=== PATIENT | female | born 1990 | race Caucasian/White ===

== ENCOUNTER → 2023-06-15 15:35 | Outpatient (CLI) | payer BC, SELFPAY ==
--- NOTE | ~2023-06-15 | US_ITS ---
Pelvic ultrasound. Clinical History: First trimester , uncertain dates Technique: Realtime transabdominal scanning of the pelvis was performed. Color flow Doppler and Doppl er spectral analysis were performed. Findings: The uterus is anteverted, and contains an intrauterine gestation. [place]-rump length of 3.7 cm corresponds to an estimated gestational age of 10 weeks 4 days. heart rate is 166 bpm. Anter ior intramural fibroid measures 3.4 cm in diameter. The right ovary measures 3.4 x 1.5 x 1.9 cm. No significant right ovarian or adnexal mass is seen. The left ovary measures 2.9 x 2.4 x 3.0 cm. No significant left ovarian or adnexal mass is seen. There is no evidence of free fluid in the cul de sac. Impression: Live intrauterine gestation with estimated gestational age of 10 weeks 4 days. heart rate is 16 6 bpm. Sonographic JOANNA is 01/07/2024. 3.4 cm fibroid, as above. Reviewed, dictated and finalized at location . T ROCK LAYER Impression: Live intrauterine gestation with estimated gestational age of 10 weeks 4 days. heart rate is 166 bpm. Sonographic JOANNA is 01/07/2024. 3.4 cm fibroid, as above.
== END ==
PROVIDERS: PCP Obstetrics & Gynecology Gynecology; Visit Provider Advanced Practice Midwife
DX: Z36.87 Encounter for antenatal screening for uncertain dates (principal); D25.9 Leiomyoma of uterus, unspecified
CPT/HCPCS: 76801

== ENCOUNTER → 2023-08-08 15:32 | Outpatient (CLI) | payer BC, SELFPAY ==
--- NOTE | ~2023-08-08 | US_ITS ---
EXAMINATION: US OB /maternal detail DATE: 08/08/2023 16:16 INDICATION: anatomic survey. TECHNIQUE: Real-time ultrasound of the pelvis was performed. COMPARISON: Ultrasound 06/15/2023 FINDINGS: There is a single living fetus in breech presentation. The placenta is anterior, 6.3 cm from the cer vix. heart rate is 143 beats per minute (bpm). The amniotic fluid volume is subjectively normal . The following biometric data were obtained: Biparietal diameter (BPD): 4.2 cm; head circumference (HC): 15.4 cm; abdominal circumference (AC): 13 .3 cm; femur length (FL): 2.6 cm. These measurements are concordant. Estimated weight is 235 g +/- 35 g, which correlates with the 49th percentile when 01/07/24 is u sed as estimated date of delivery. As single measurements, these parameters are each equal to the following estimated gestational ages: BPD: 18 weeks 5 days. HC: 18 weeks 3 days. AC: 18 weeks 6 days. FL: 17 weeks 6 days. estimated gestational age based solely on measurements from this exam is 18 weeks 3 days +/- 1 weeks 2 days. The cerebral ventricles, cerebellum, cisterna magna, nuchal fold, lip, and visualized portions of the spine are normal. The heart is normal. The diaphragm, stomach, and kidneys are normal. The bladder i s normal. There are two umbilical arteries to yield a 3-vessel cord. The cord insertion is normal. IMPRESSION: 1. Single living fetus in breech presentation. 2. Estimated weight is 235 g +/- 35 g, which correlates with the 49th percentile when 01/07/24 is used as estimated date of delivery. 3. Normal anatomic survey. Reviewed, dictated and finalized at location E. H HEATER IMPRESSION: 1. Single living fetus in breech presentation. 2. Estimated weight is 235 g +/- 35 g, which correlates with the 49th pe rcentile when 01/07/24 is used as estimated date of delivery. 3. Normal anatomic survey.
== END ==
PROVIDERS: PCP Advanced Practice Midwife; Visit Provider Advanced Practice Midwife
DX: Z36.9 Encounter for antenatal screening, unspecified (principal); Z3A.00 Weeks of gestation of pregnancy not specified
CPT/HCPCS: 76805

== ENCOUNTER → 2023-09-08 15:14 | Outpatient (CLI) | payer BC, SELFPAY ==
--- NOTE | ~2023-09-08 | US_ITS ---
EXAMINATION: US OB follow up DATE: 09/08/2023 15:39 INDICATION: Spotting during second trimester of TECHNIQUE: Real-time ultrasound of the pelvis was performed. The interpreting radiologist was not pre sent for the study. COMPARISON: None. FINDINGS: There is a single living fetus in breech presentation. The placenta is anterior and not low-lying. F etal heart rate is 151 beats per minute (bpm). The amniotic volume is subjectively normal. Normal cer vical length of 3.2 cm. The following biometric data were obtained: BPD: 5.5 cm -> 22 weeks 6 days Head circumference: 21.0 cm -> 23 weeks 1 days Abdominal circumference: 19.1 cm -> 23 weeks 6 days Femur length: 3.8 cm -> 22 weeks 1 days The biometric data are discordant with femur length to biparietal diameter ratio, femur length to abd ominal circumference ratio and femur length to head circumference ratio all greater than 2 standard d eviations below the mean. Head circumference to abdominal circumference ratio: 1.10 (normal range 1.05-1.21). Estimated weight: 561 g (+/-) 84 g or 1 lbs. 4 oz. (+/-) 3 oz. IMPRESSION: 1. Single living fetus in each presentation with heart rate of 151 bpm. 2. Estimated weight is 62nd percentile by Hadlock criteria when 01/07/2024 is used as the estima nitin date of delivery (JOANNA). Please correlate with clinical information or earlier ultrasounds for mos t accurate JOANNA. 3. Discordant biometric data with the ratio of the femur to the head circumference, abdominal circumf erence and biparietal diameter also slightly below the normal range suggesting possible rhizomelia. Reviewed, dictated and finalized at location A. LINE FIELD OPERATOR IMPRESSION: 1. Single living fetus in each presentation with heart rate of 151 bpm. 2. Estimated weight is 62nd percentile by Hadlock criteria when 01/07/2024 is used as the estimated date of delivery (JOANNA). Please correlate with clinica l information or earlier ultrasounds for most accurate JOANNA. 3. Discordant biometric data with the ratio of the femur to the head circumfere nce, abdominal circumference and biparietal diameter also slightly below the no rmal range suggesting possible rhizomelia.
== END ==
PROVIDERS: PCP Obstetrics & Gynecology Gynecology; Visit Provider Obstetrics & Gynecology Gynecology
DX: O26.852 Spotting complicating pregnancy, second trimester (principal); Z3A.00 Weeks of gestation of pregnancy not specified
CPT/HCPCS: 76816

== ENCOUNTER 2023-12-10 21:42 | Observation (INO) | payer BC, SELFPAY ==
[2023-12-10] VITALS (9 sets, daily range): BP systolic 111–138; BP diastolic 66–85; PULSE 95–126; TEMP 37.1; BMI 30.5
--- NOTE | 2023-12-10 21:42 | OBADM ---
This patient, Clara Ball, admitted to the OB room Labor/Delivery/Recovery 120 for observation. Patient/family oriented to hospital policies and general routines including ID bracelet, bed and alarms, visiting hours, pain management, procedures, bathroom and other care routines, personal items, smoking policy, room service/diet, and visiting hours. Patient/Family are encouraged to report perceived risks to care and to ask questions if they do not understand what they are told or what they should do.
[2023-12-11] VITALS: BP 114/67; PULSE 102
[2023-12-11 00:15] VITALS: BP 115/74; PULSE 109
[2023-12-11 00:30] VITALS: BP 113/67; PULSE 98
[2023-12-11 00:45] VITALS: BP 83/70; PULSE 104
[2023-12-11 00:55] VITALS: BP 117/73; PULSE 100
--- NOTE | 2023-12-11 07:35 | PM.OBTRLD ---
OB - Triage/Final Diagnosis Visit Information Date of evaluation: 12/10/23 Reason for evaluation: threatened labor Comments/Additional reasons for admission: I have assessed the risk for this patient, Clara Ball, and determined that she would benefit from observation care. Evaluation Vital signs: Vital Signs - 24 hr 12/10/23 22:00 12/10/23 22:15 12/10/23 22:05 Temperature 98.7 F 98.7 F Pulse Rate 120 H 105 H Blood Pressure 126/85 128/76 Oxygen Delivery 12/10/23 22:30 12/10/23 22:45 12/10/23 23:00 Temperature Pulse Rate 95 116 H 116 H Blood Pressure 132/74 138/83 134/69 Oxygen Delivery 12/10/23 23:15 12/10/23 23:30 12/10/23 23:45 Temperature Pulse Rate 105 H 126 H 113 H Blood Pressure 127/66 113/72 111/67 Oxygen Delivery 12/11/23 00:00 12/11/23 00:15 12/11/23 00:30 Temperature Pulse Rate 102 H 109 H 98 Blood Pressure 114/67 115/74 113/67 Oxygen Delivery 12/11/23 00:45 12/11/23 00:55 12/10/23 22:00 Temperature Pulse Rate 104 H 100 Blood Pressure 83/70 L 117/73 Oxygen Delivery Room Air
== END 2023-12-11 01:15 | disposition home or self-care (01) ==
PROVIDERS: Admitting Provider Obstetrics & Gynecology; PCP Physician Assistant; Visit Provider Obstetrics & Gynecology
DX: O47.9 False labor, unspecified (principal); Z3A.00 Weeks of gestation of pregnancy not specified
CPT/HCPCS: G0378; G0379

== ENCOUNTER 2023-12-12 17:23 | Observation (INO) | payer BC, SELFPAY ==
[2023-12-12 20:00] VITALS: BP 138/78; PULSE 98
[2023-12-12] MEDS: LACTATED RINGERS 1,000 ML 125 ML IV CONT (20:35)
[2023-12-12 22:00] VITALS: TEMP 36.6
[2023-12-13] VITALS: TEMP 36.3
[2023-12-13 02:00] VITALS: TEMP 36.6
[2023-12-13] MEDS: LACTATED RINGERS 1,000 ML 125 ML IV CONT (04:26)
--- NOTE | 2023-12-13 05:08 | OBADM ---
This patient, Clara Ball, admitted to the OB room OB Post 116 for observation. Patient/family oriented to hospital policies and general routines including ID bracelet, bed and alarms, visiting hours, pain management, procedures, bathroom and other care routines, personal items, smoking policy, room service/diet, and visiting hours. Patient/Family are encouraged to report perceived risks to care and to ask questions if they do not understand what they are told or what they should do.
[2023-12-13 06:00] VITALS: TEMP 36.4
[2023-12-13 06:40] VITALS: BP 116/74; PULSE 89
[2023-12-13 07:00] VITALS: TEMP 36.3
--- NOTE | 2023-12-15 13:56 | PM.OBTRLD ---
OB - Triage/Final Diagnosis Visit Information Reason for evaluation: threatened labor Comments/Additional reasons for admission: I have assessed the risk for this patient, Clara Ball, and determined that she would benefit from observation care.
== END 2023-12-13 08:00 ==
PROVIDERS: Admitting Provider Obstetrics & Gynecology; PCP Physician Assistant; Visit Provider Obstetrics & Gynecology Gynecology
DX: O47.9 False labor, unspecified (principal); Z3A.00 Weeks of gestation of pregnancy not specified
CPT/HCPCS: 59025; 96360; 96361; G0378; G0379; J7120

== ENCOUNTER 2023-12-16 10:11 | Inpatient (IN) | payer BC, SELFPAY ==
[2023-12-16] VITALS (41 sets, daily range): BP systolic 103–135; BP diastolic 59–104; PULSE 63–131; RESP 13–18; TEMP 36.2–36.7; O2SAT 76–100
--- NOTE | 2023-12-16 10:44 | P.HP_ITS ---
H&P: HPI History of Present Illness Date/Time: 12/16/23 10:44 Chief Complaint: spontaneous rupture of membranes Narrative: The patient is a 33-year-old 3 para 1 aborta 1 admitted at 37 weeks with spontaneous rupture of membranes. Patient is planned for a primary C- section due to a prior 4th degree laceration requiring secondary revision. The pros and cons of section versus a vaginal were reviewed. Patient voices understanding and wishes to proceed with a primary . labs O positive, rubella immune, RPR negative, HIV negative, hepatitis-B surface antigen negative, group B strep negative. Review of Systems Review of Systems: not repeated day of surgery; patient states no changes in status PMF Past Medical History Medical History (Updated 12/16/23 @ 10:51 by Violeta House MD) (normal spontaneous vaginal delivery) 8lb 6oz male 2012 4th degree laceration Spontaneous 2022 Surgical History Surgical History (Updated 12/16/23 @ 10:50 by Violeta House MD) H/O vaginal surgery 2012 revision 4th degree laceration Family History Family History (Updated 12/15/23 @ 10:14 by Juanita Moss RN) Mother Cancer of kidney Social History Social History Substance use: never Spiritual care concerns: No Meds Home Medications and Allergies Home Medications Medication Instructions Recorded Confirmed Type aspirin 81 mg tablet 81 mg PO 12/15/23 History cholecalciferol (vitamin D3) 125 125 mcg PO DAILY 12/15/23 12/15/23 History mcg (5,000 unit) tablet prenat.vits,mario alberto,[id number] 1 tablet 12/15/23 History Allergies Allergy/AdvReac Type Severity Reaction Status Date / Time No Known Allergies Allergy Verified 12/10/23 23:15 Exam Const: General: healthy appearing and alert Orientation/consciousness: patient oriented x3 Resp: Effort & Inspection: normal respiratory effort Auscultation: clear to auscultation bilaterally GI: GI Palp: Yes Soft to palpation, No Tenderness to palpation present (GI) and Yes Other GI palpation findings present ( gravid) : External Female Exam: normal external appearance Speculum Exam - Vagina: normal appearance of the vagina and normal vaginal discharge Speculum Exam - Cervix: normal appearance of the cervix Bimanual exam- vagina & uterus: other ( grossly ruptured and positive ROM Plus) Neuro: General: patient oriented x3 Assessment and Plan Assessment and plan (1) 37 weeks gestation of : Code(s): Z3A.37 - 37 weeks gestation of Status: Acute (2) SROM (spontaneous rupture of membranes): Status: Acute (3) History of fourth degree perineal laceration: Code(s): Z87.59 - Personal history of other complications of , childbirth and the puerperium Status: Acute Assessment and Plan: plan to proceed with primary section
--- NOTE | 2023-12-16 10:44 | WPDHPUPDATE1 ---
History and Physical Update Update Date/Time: 12/16/23 10:44 History and Physical has been reviewed, including an updated exam of the patient. There are NO changes in the patient's condition. Risks, benefits, and alternatives have been discussed and questions answered. Patient agrees to proceed with procedure.
[2023-12-16] MEDS: ACETAMINOPHEN 500 MG TABLET 1000 MG PO (10:53)
[2023-12-16 10:57] LABS: Basophils Percent Auto 0.1 % (0.2-1.2); Eosinophils Absolute Auto 0.1 K/mm3 (0-0.3); Eosinophils Percent Auto 0.7 % (0-4.4); Hemoglobin 11.3 g/dL (12.0-15.0); Immature Granulocyte Absolute 0.04 K/mm3 (0.00-0.031); Immature Granulocyte Percent A 0.5 % (0-0.5); Lymphocytes Absolute Auto 2.14 K/mm3 (0.9-3.2); Lymphocytes Percent Auto 25.6 % (18.3-44.2); Mean Corpuscular HGB Conc 34.2 g/dl (32-36); Mean Corpuscular Hemoglobin 30.1 pg (26-34); Mean Platelet Volume 11.5 fl (7.4-10.4); Monocytes Absolute Auto 0.4 K/mm3 (0.1-0.6); Monocytes Percent Auto 5.3 % (2.6-8.5); Neutrophils Absolute Auto 5.7 K/mm3 (1.3-6.7); Neutrophils Percent Auto 67.8 % (45.5-73.1); Platelet Count Result 190 k/mm3 (150-375); Red Blood Count 3.75 M/mm3 (4.2-5.4); Red Cell Distribution Width 13.6 % (11.5-14.5); White Blood Count 8.4 K/mm3 (4.5-10.0)
[2023-12-16] MEDS: FAMOTIDINE 20 MG/2 ML VIAL IV PUSH (11:09)
[2023-12-16] MEDS: ONDANSETRON INJ 4 MG/2 ML VIAL IV PUSH (11:09)
--- NOTE | 2023-12-16 11:13 | WPDANESEPPF ---
Anes - Initial Pre Proc Eval Procedure: Operation Date: 01/05/24 07:30 Proposed Procedures p Primary Section - Violeta House MD Date/Time: 12/16/23 11:13 Surgeon: Violeta House MD Pre Op Diagnosis: C/S/ Hx fourth degree laceration Patient Data Age: 33 Gender: F Height: 1.7 m Weight: 87 kg Last Vital Signs Pulse 116 H 12/16/23 11:00 BP 121/85 12/16/23 11:00 Allergies Allergy/AdvReac Type Severity Reaction Status Date / Time No Known Allergies Allergy Verified 12/10/23 23:15 Home Medications Medication Instructions Recorded Confirmed Type aspirin 81 mg tablet 81 mg PO 12/15/23 History cholecalciferol (vitamin D3) 125 125 mcg PO DAILY 12/15/23 12/15/23 History mcg (5,000 unit) tablet prenat.vits,mario alberto,qvm-djwi-[id number] 1 tablet 12/15/23 History Laboratory Tests 12/16/23 10:45 WBC 8.4 K/mm3 (4.5-10.0) RBC 3.75 L M/mm3 (4.2-5.4) Hgb 11.3 L g/dL (12.0-15.0) Hct 33.0 L % (37.0-47.0) MCV 88.0 fl (80-100) MCH 30.1 pg (26-34) MCHC 34.2 g/dl (32-36) RDW 13.6 % (11.5-14.5) Plt Count 190 k/mm3 (150-375) MPV 11.5 H fl (7.4-10.4) Immature Gran % (Auto) 0.5 % (0-0.5) Neut % (Auto) 67.8 % (45.5-73.1) Lymph % (Auto) 25.6 % (18.3-44.2) [place] % (Auto) 5.3 % (2.6-8.5) Eos % (Auto) 0.7 % (0-4.4) Baso % (Auto) 0.1 L % (0.2-1.2) Lymph # (Auto) 2.14 K/mm3 (0.9-3.2) [place] # (Auto) 0.4 K/mm3 (0.1-0.6) Eos # (Auto) 0.1 K/mm3 (0-0.3) Baso # (Auto) 0.0 K/mm3 (0.0-0.1) Abs Immat Gran (auto) 0.04 H K/mm3 (0.00-0.031) Absolute Neuts (auto) 5.7 K/mm3 (1.3-6.7) Absolute Nucleated RBC 0.000 K/mm3 (0.0-0.012) Nucleated RBC % 0.0 % (0.0-0.2) RPR Pending HIV 1&2 Ab/P24 Ag 4thGn Pending Patient hx anesthesia problems: none Family hx anesthesia problems: none Results Review: All pre-operative results and documents have been reviewed as part of the pre-operative evaluation. [facility] Past Medical History Medical History (Updated 12/16/23 @ 10:51 by Violeta House MD) (normal spontaneous vaginal delivery) 8lb 6oz male 2012 4th degree laceration Spontaneous 2022 Surgical History Surgical History (Updated 12/16/23 @ 10:50 by Violeta House MD) H/O vaginal surgery 2013 revision 4th degree laceration Family History Family History (Updated 12/15/23 @ 10:14 by Juanita Moss RN) Mother Cancer of kidney Social History Social History Substance use: never Spiritual care concerns: No Anes - Eval Final PreProcedure Day of Procedure 12/16/23 11:13 Patient weight: obese Heart: regular rate and rhythm Lungs: clear to auscultation and normal air movement Airway: Mallampati scale class II Neurological: alert and oriented Last oral intake: >/= 8 hours ASA classification: II Emergent: no Anesthetic plan: proceed Anesthesia type and monitoring: regional spinal and standard monitoring Results Review: All pre-operative results and documents have been reviewed as part of the pre-operative evaluation. Informed Consent: The patient's anesthetic plan and its attendant risks and benefits were discussed with the patient/family/POA. Questions were solicited and answers provided to the satisfaction of the patient/family/POA.
--- NOTE | 2023-12-16 11:30 | LDADM ---
This patient, Clara Ball, was admitted to Labor/Delivery/Recovery 118 on 12/16/23 at 10:11. Plans for labor, pain management and were discussed with patient. Patient/family oriented to hospital policies and general routines including ID bracelet, bed and alarms, visiting hours, pain management, procedures, bathroom and other care routines, personal items, smoking policy, room service/diet and guest tray routines, security routines, and visiting hours. Patient/Family are encouraged to report perceived risks to care and to ask questions if they do not understand what they are told or what they should do. See OBIX for further documentation.
[2023-12-16] MEDS: ceFAZolin 2 GM/D5W 50 ML 2 GM/50 ML BAG IVPB (11:37)
[2023-12-16 11:48] LABS: HIV 1/2 Ab P24 Ag Result Negative (Negative)
--- NOTE | 2023-12-16 12:23 | W.PM.OBCSD ---
OB - Delivery Note Procedure Delivery date: 12/16/23 Pre-op diagnosis: Other (37 weeks; spontaneous rupture of membranes; previous 4th degree laceration) Post-op Diagnosis: Same Delivery monitor: External FHT and External Uterine Procedure Performed: Primary Primary branch: low cervical, transverse Surgeon: Violeta House MD Anesthesia type: Spinal Description of Procedure/Findings: The patient is taken the operating room and placed under anesthesia in the dorsal supine position with a leftward tilt. Once anesthesia was deemed adequate she was prepped and draped in the usual sterile fashion. Pfannenstiel skin incision was made with a scalpel and carried down to the underlying layer of fascia which was nicked in the midline. The incision was extended laterally using Moss scissors. Ochsner was used to tent the fascia which was then dissected off using sharp and blunt dissection. The rectus muscles are in the midline and the peritoneum was tented and entered with Metzenbaum. The incision was extended with blunt traction. The bladder blade is placed. The vesicouterine peritoneum was very low on the lower uterine segment and very adherent. It is left in place. The lower uterine segment was incised in a transverse fashion with the scalpel . The incision was extended with blunt traction. The membranes are ruptured with clear fluid. The infant's vertex was guided through the incision while the junior sales assistant applied fundal pressure. Infant was fully delivered and delayed cord clamping for 1minute. The cord was then clamped and the infant handed to the waiting nursery nurse. The cord gases and cord blood were drawn. The placenta was removed using manual traction. The uterus was cleared of all clots and debris. The uterus is atonic and responded to massage, Pitocin, and Methergine. The uterine incision was closed using 0 Monocryl in a running locked fashion with the same suture used to imbricate. One additional gkecwf-lo-peswp suture was required in the right midline. Good hemostasis is noted. The cul-de-sac is cleared of all clots and debris and irrigated. The uterus was returned to the abdomen and the gutters were cleared of all clots and debris and irrigated. The incision was again inspected noted to be hemostatic. The fascia was closed using 0 Vicryl in a running fashion. Subcutaneous tissues are irrigated made hemostatic using Bovie cautery. Skin incision was closed using 4-0 Vicryl in a subcuticular fashion. Dermaflex was placed over the incision. Sponge, needle, and instrument counts are correct per the OR staff. The patient is taken to recovery in stable condition. Patient was given Ancef prior to incision. Specimen: No Estimated Blood Loss: 875 Drains: Yes ( Peguero catheter) Packing: No Pathology: None sent Complications: No immediate complications Condition: Stable Disposition: PACU [place] Baby Date of : 12/16/23 Weeks of gestation at delivery: 37 gender: Female Weight (pounds): 8 Weight (ounces): 5 presentation: vertex position: Right Occiput Anterior Placenta delivery description: Spontaneous Cord Vessel Description: 3 Vessels and Delayed Cord Clamping score one minute: 8 score five minutes: 9
--- NOTE | 2023-12-16 12:28 | PM.OBDSVD ---
DS: Admitting Diagnosis Discharge Date 12/20/23 Admitting Diagnosis IUP 37 wks SROM Prior 4th degree laceration with secondary reconstructive repair DS: Discharge Diagnosis Discharge Diagnosis (1) Delivery by section using transverse incision of lower segment of uterus: Code(s): O82 - Encounter for delivery without indication Status: Acute (2) History of fourth degree perineal laceration: Code(s): Z87.59 - Personal history of other complications of , childbirth and the puerperium Status: Acute OB - DS: Summary OB Procedures : Ultrasound OB Procedures Intrapartum: low cervical, transverse OB Procedures: : None Peripartum Data Delivery Method: Section Procedures: Procedures Operation Date: 12/16/23 11:30 <No data on this case meets the specified criteria> complications: none Status at Discharge Functional status at discharge: independent ambulation Overall status at discharge: patient is progressing back to baseline Time Spent with Patient Time attestation: Total time spent providing and/or coordinating discharge services: DS: Data Data Completed and Pending Labs on day of discharge: Labs from last 24 hours 12/16/23 10:45 WBC 8.4 RBC 3.75 L Hgb 11.3 L Hct 33.0 L MCV 88.0 MCH 30.1 MCHC 34.2 RDW 13.6 Plt Count 190 MPV 11.5 H Immature Gran % (Auto) 0.5 Neut % (Auto) 67.8 Lymph % (Auto) 25.6 [place] % (Auto) 5.3 Eos % (Auto) 0.7 Baso % (Auto) 0.1 L Lymph # (Auto) 2.14 [place] # (Auto) 0.4 Eos # (Auto) 0.1 Baso # (Auto) 0.0 Abs Immat Gran (auto) 0.04 H Absolute Neuts (auto) 5.7 Absolute Nucleated RBC 0.000 Nucleated RBC % 0.0 RPR Pending HIV 1&2 Ab/P24 Ag 4thGn Negative Blood Type O Positive Antibody Screen Negative Discharge Plan Discharge Attending physician on discharge: Violeta House Consulting providers: Saroj Garcia; Caitlin Patel; Real Dee; Dara Peterson Discharging Clinician: Caitlin Patel Anticipated Discharge Date/Time: 12/20/23 08:00 Patient Disposition: Home, Self-Care Activity: may shower, may drive after 2 weeks and pelvic rest Diet: regular Wound Care Instructions: incision open to air Discharge Instructions: Education: Mom and Baby Guide Given to: Mother Follow-Up: Call your delivering provider's office for an appointment to be seen in: 1 Week Mom and baby should come to the [facility] for the follow-up appointment. Appointment Date/Time: December 21, 2023 at 8:00 am What to expect at your follow-up visit: Physical Assessment Call [phone] if you are unable to keep your appointment time. BREAST CARE: * Wear a snug supportive bra. * For engorgement discomfort: Breast Feeding: * Apply warm moist washcloths * Express milk as needed to relieve engorgement * Wear loose clothing Bottle Feeding: * May apply ice packs * For sore nipples: * Identify correct latch-on * Apply warm moist washcloths before and after nursing * Air dry nipples after nursing * May apply Lansinoh cream to nipples ABDOMINAL INCISION: (if applicable) * Allow incision to air dry * Do NOT use lotions for powders on your incision * When showering, allow soap and water to run over the incision, but do not wash incision EPISIOTOMY/PERINEAL CARE: * Until bleeding stops, use your judie bottle after urinating * Change your pad frequently throughout the day * You may take sitz baths several times a day (fill your bathtub with warm water and soak for 20 minutes.) Do NOT bathe in the water * No tub baths until seen by your physician - You may shower ACTIVITY: * Rest as much as possible. * Do not exercise or lift anything heavier than your baby (such as laundry or other children.) * Avoid stairs or driving
[2023-12-16 12:34] LABS: Rapid Plasma Reagin Non-Reactive (NonReactive)
[2023-12-16] MEDS: OXYTOCIN 30 UNITS/NS 500 ML 30 UNITS/500 ML BAG 125 UNITS IV CONT (13:36)
[2023-12-16] MEDS: LORATADINE 10 MG TABLET (13:41)
--- NOTE | 2023-12-16 14:50 | PC.NURSE ---
Patient transferred to post room # 277 via stretcher. Support person present. Oriented to unit, room, information board, rooming in, admission packet and security measures. Patient verbalizes understanding.
[2023-12-16] MEDS: LIDOCAINE 5% PATCH 1 PATCH TRANSDERM (15:12)
[2023-12-16] MEDS: KETOROLAC 15 MG/ML VIAL (*BKC) IV PUSH (15:18)
[2023-12-16] MEDS: DOCUSATE SODIUM 100 MG CAPSULE PO (17:44)
[2023-12-16] MEDS: ACETAMINOPHEN 325 MG TABLET 650 MG PO (17:44)
[2023-12-16] MEDS: SIMETHICONE 80 MG TAB.CHEW PO (17:44)
[2023-12-16] MEDS: DEXTROSE 5%/0.45% SOD CHL 1,000 ML 125 ML IV CONT (17:47)
[2023-12-16] MEDS: HYDROcodone/acetaminophen (*CRX) 5-325 MG TABLET 1 TAB PO (20:15)
[2023-12-17] MEDS: ACETAMINOPHEN 325 MG TABLET 650 MG PO ×4 (00:15→19:16)
[2023-12-17] MEDS: KETOROLAC 15 MG/ML VIAL (*BKC) IV PUSH ×3 (00:15→12:41)
[2023-12-17 04:20] VITALS: BP 116/77; PULSE 88; RESP 16; TEMP 36.7
[2023-12-17 05:18] LABS: Basophils Percent Auto 0.2 % (0.2-1.2); Eosinophils Absolute Auto 0.1 K/mm3 (0-0.3); Eosinophils Percent Auto 0.9 % (0-4.4); Hematocrit 27.5 % (37.0-47.0); Hemoglobin 9.2 g/dL (12.0-15.0); Immature Granulocyte Absolute 0.05 K/mm3 (0.00-0.031); Immature Granulocyte Percent A 0.5 % (0-0.5); Lymphocytes Absolute Auto 2.45 K/mm3 (0.9-3.2); Lymphocytes Percent Auto 24.9 % (18.3-44.2); Mean Corpuscular HGB Conc 33.5 g/dl (32-36); Mean Corpuscular Hemoglobin 29.9 pg (26-34); Mean Corpuscular Volume 89.3 fl (80-100); Mean Platelet Volume 11.5 fl (7.4-10.4); Monocytes Absolute Auto 0.4 K/mm3 (0.1-0.6); Monocytes Percent Auto 4.3 % (2.6-8.5); Neutrophils Absolute Auto 6.8 K/mm3 (1.3-6.7); Neutrophils Percent Auto 69.2 % (45.5-73.1); Platelet Count Result 177 k/mm3 (150-375); Red Blood Count 3.08 M/mm3 (4.2-5.4); Red Cell Distribution Width 13.5 % (11.5-14.5); White Blood Count 9.9 K/mm3 (4.5-10.0)
[2023-12-17 06:20] VITALS: BP 110/76; PULSE 84; RESP 18; TEMP 36.7
--- NOTE | 2023-12-17 07:46 | WPDANLDPN2 ---
Anes-Prog Note L&D Date/Time: 12/17/23 07:46 Comfortable throughout: section Neuraxial method: spinal Epidural/Spinal procedure site: clean & non-tender Neuro status: Neuro function grossly intact. Cardiovascular status: normal Respiratory status: normal Airway patency: baseline Mental status: baseline Post-Op hydration status: normal Vital Signs: Last Vital Signs Temp 36.7 C 12/17/23 06:20 Pulse 84 12/17/23 06:20 Resp 18 12/17/23 06:20 BP 110/76 12/17/23 06:20 Pulse Ox 100 12/16/23 20:00 O2 Del Method Room Air 12/17/23 04:20 Pain score (VAS): 2/10 I/O: Intake & Output 12/16/23 12/16/23 12/17/23 15:59 23:59 07:59 Intake Total 400 Output Total 500 521 7437 Balance -111 -648 -3867 Post-procedural complaints: none Patient feedback: Patient satisfied with anesthetic care.
--- NOTE | 2023-12-17 07:46 | WPDANLDNPN2 ---
Anes-Prog Note L&D-Neuraxial Date/Time: 12/17/23 07:46 Neuraxial medications: intrathecal PF morphine Opiod-related complaints: pruritis moderate, treatment effective Patient feedback: Patient satisfied with post-operative pain management.
[2023-12-17] MEDS: POLYSACCHARIDE IRON COMPLEX 150 MG CAPSULE PO ×2 (09:39→17:20)
[2023-12-17] MEDS: MULTIVIT/MIN/PREN/FOL AC/IRON TABLET 1 TAB PO (09:39)
[2023-12-17] MEDS: SIMETHICONE 80 MG TAB.CHEW PO ×3 (09:39→17:20)
[2023-12-17] MEDS: DOCUSATE SODIUM 100 MG CAPSULE PO ×2 (09:39→17:20)
--- NOTE | 2023-12-17 12:18 | PM.OBPNVD ---
OB - PN: Subj Subjective Date/time seen: 12/17/23 12:18 Narrative: Pain OK. Tolerating diet. OB - PN: Obj Data Labs 12/17/23 04:08 Labs: Laboratory Results - last 24 hr 12/16/23 12/17/23 10:45 04:08 WBC 9.9 RBC 3.08 L Hgb 9.2 L Hct 27.5 L MCV 89.3 MCH 29.9 MCHC 33.5 RDW 13.5 Plt Count 177 MPV 11.5 H Immature Gran % (Auto) 0.5 Neut % (Auto) 69.2 Lymph % (Auto) 24.9 [place] % (Auto) 4.3 Eos % (Auto) 0.9 Baso % (Auto) 0.2 Lymph # (Auto) 2.45 [place] # (Auto) 0.4 Eos # (Auto) 0.1 Baso # (Auto) 0.0 Abs Immat Gran (auto) 0.05 H Absolute Neuts (auto) 6.8 H Absolute Nucleated RBC 0.000 Nucleated RBC % 0.0 RPR Non-reactive OB - PN A/P Plan Comments: A: POD#1, doing well. P: Routine care. Exam Narrative: AVSS I/O OK ABD soft, nontender, fundus firm. Incision c/d/i. EXT nontender
[2023-12-17] MEDS: LIDOCAINE 5% PATCH 1 PATCH TRANSDERM (15:11)
[2023-12-17] MEDS: IBUPROFEN 600 MG TABLET PO (19:17)
[2023-12-17] MEDS: HYDROcodone/acetaminophen (*CRX) 5-325 MG TABLET 1 TAB PO (19:40)
[2023-12-17 19:51] VITALS: BP 116/73; PULSE 84; RESP 16; TEMP 37.4
[2023-12-18] MEDS: IBUPROFEN 600 MG TABLET PO ×4 (01:57→20:28)
[2023-12-18] MEDS: ACETAMINOPHEN 325 MG TABLET 650 MG PO ×4 (01:57→20:28)
[2023-12-18] MEDS: HYDROcodone/acetaminophen (*CRX) 5-325 MG TABLET 1 TAB PO ×2 (03:46→10:38)
[2023-12-18] MEDS: POLYSACCHARIDE IRON COMPLEX 150 MG CAPSULE PO ×2 (07:34→16:55)
[2023-12-18] MEDS: DOCUSATE SODIUM 100 MG CAPSULE PO ×2 (07:35→16:55)
[2023-12-18] MEDS: MULTIVIT/MIN/PREN/FOL AC/IRON TABLET 1 TAB PO (07:35)
[2023-12-18 07:40] VITALS: BP 112/64; PULSE 89; RESP 18; TEMP 36.7
--- NOTE | 2023-12-18 09:58 | PM.OBPNVD ---
OB - PN: Subj Subjective Date/time seen: 12/18/23 09:58 Narrative: Pain OK. Tolerating diet. OB - PN: Obj Data Labs 12/17/23 04:08 OB - PN A/P Plan Comments: A: POD#2, doing well. P: Routine care. Probably home tomorrow. Exam Narrative: AVSS I/O OK ABD soft, nontender, fundus firm. Incision c/d/i. EXT nontender
[2023-12-18] MEDS: SIMETHICONE 80 MG TAB.CHEW PO ×3 (10:41→16:55)
[2023-12-18 20:30] VITALS: BP 120/70; PULSE 88; RESP 17; TEMP 36.8; O2SAT 97
[2023-12-19] MEDS: ACETAMINOPHEN 325 MG TABLET 650 MG PO ×4 (02:30→20:36)
[2023-12-19] MEDS: IBUPROFEN 600 MG TABLET PO ×4 (02:30→20:37)
[2023-12-19 08:00] VITALS: BP 116/75; PULSE 92; RESP 16; TEMP 36.9; O2SAT 98
--- NOTE | 2023-12-19 08:00 | PM.OBPNVD ---
OB - PN: Subj Subjective Date/time seen: 12/19/23 0745 Interval history: Doing well. Urinating without difficulty. Denies passing any large clots. Denies dizziness with ambulating. Tolerating po food and fluids. Bonding with infant. Reports her milk is in. Pain well controlled with po medication Patient comments: no complaints and pain well controlled [place] baby status: doing well and nursing well feeding status: exclusively breast feeding Narrative: pumping after feedings OB - PN: Obj Data Labs 12/17/23 04:08 OB - PN A/P Assessment and Plan (1) Delivery by section using transverse incision of lower segment of uterus: Code(s): O82 - Encounter for delivery without indication Status: Acute (2) History of fourth degree perineal laceration: Code(s): Z87.59 - Personal history of other complications of , childbirth and the puerperium Status: Acute Plan day: 3 Plan: routine care Time Spent With Patient Time: Total time spent is greater than 50% in coordination of care (as documented) at patient's floor/unit and/or counseling patient: Review of Systems Review of Systems: All systems reviewed & are unremarkable except as noted in HPI and below Exam Const: General: cooperative, no acute distress and awake Orientation/consciousness: patient oriented x3 Limitations: no limitations Resp: Effort & Inspection: normal respiratory effort and able to speak in complete sentences Auscultation: clear to auscultation bilaterally Cardio: Rate: regular rate Peripheral pulses: Peripheral pulses 2+ throughout GI: Inspection: normal to inspection Auscultation: normal bowel sounds : General: Yes bladder normal to palpation Speculum Exam - Vagina: vaginal bleeding Bimanual exam- vagina & uterus: bladder normal to palpation OB/external & speculum: vaginal bleeding Other: Fundus firm and below U Skin: General skin exam: normal color Other: Incision C/D/I Neuro: General: patient oriented x3 Cognition (Neuro): normal cognition Speech: normal speech Extrem: General: normal to inspection Psych: Appearance: grossly normal Mental Status: mental status grossly normal Speech and movement: Normal speech and movement present Affect: normal affect Attitude: cooperative Thought process: Normal thought process present
[2023-12-19] MEDS: SIMETHICONE 80 MG TAB.CHEW PO ×3 (08:31→17:11)
[2023-12-19] MEDS: MULTIVIT/MIN/PREN/FOL AC/IRON TABLET 1 TAB PO (08:31)
[2023-12-19] MEDS: POLYSACCHARIDE IRON COMPLEX 150 MG CAPSULE PO ×2 (08:31→17:11)
[2023-12-19] MEDS: DOCUSATE SODIUM 100 MG CAPSULE PO ×2 (08:31→17:11)
--- NOTE | 2023-12-19 15:36 | PC.NURSE ---
[id number] Introductions were made, then consulted with patient to assess needs related to . Mother led the conversation with her?plans to feed?her infant and the?experience so far. Encouraged understanding of the benefits of skin to skin. RN demonstrated and discussed unwrapping and placing upright on her chest, stimulating with massage touch, changing positions to encourage wakefulness, how to watch for early feeding cues, responsive feeding, feeding on demand (aiming for 8-12 times in 24 hours, about every 2-3 hours), milk production, building/maintaining a milk supply, duration of feeding, signs of adequate intake/output and how to record on the feeding sheet. Mother works well with her with encouragement and education. Reviewed positioning and ear, shoulder, hip alignment, supporting the breast to facilitate a deep latch, asymmetrical latch (off-center), leading with the chin with a big, open, wide gape and body close to mother. latched optimally to the right, then left breast in football, then cross cradle position. Education given to the mother of how to visualize the suckling (with good rocking jaw motion), swallows (dropping of the lower jaw) and how to listen for drinking at the breast (the ka sound) which infant demonstrates mostly every 3rd suck. was able to maintain latch without pain to mother protecting the nipple with optimal positioning and latching for about 10-15 minutes. Encouraged parents understanding of swallowing at the breast vs hanging out. Reviewed comfort measures of healing with a warm, wet washcloth to rinse breast, then leave open to air-dry, good handwashing when or touching the breast/nipples to prevent infection. Mother's breast palpated full with milk surge filling. Reviewed preventing/treatment/care of engorgement to keep the milk flowing for protection from plugged ducts, mastitis and discomfort. Mother voiced understanding of skin to skin, stimulating with massage touch, responsive feedings, hand expressed colostrum, talking to infant to encourage if it has been 2 -2.5 hours since the start of the last , to call if does not latch, or if there is discomfort with . Resources used for education were facilitated with the visual educational handouts/ tool/mom and baby guide. Inpatient/outpatient resources provided with feeding sheet, name written on the communication board, and the mom/baby guide. Parents voiced understanding of information, demonstrated learning and will call if there is a request for assistance. Reported to the Primary RN. [id number] Demonstrated and discussed paced bottle feeding and the rational. Mother shares she is using her portable pump occasionally. Instructions given on cleaning, care, usage, that there should be no pain, pumping schedule for milk production, collection, and storage of human milk and the risks of portable vs electric and over supply. We reviewed correct placement, flange size, to pump for comfort and nipple stretching/stimulation for adequate milk production every 3 hours (8 times in 24 hours) 1-2 times at night if infant is not latching. Parents are encouraged to record the pumping schedule on the feeding sheet.?Mother voiced understanding of the education shared along with mom/baby guide and the pump measurement, flange fit handout for additional resource information. Reported to the Primary RN.
[2023-12-19 20:35] VITALS: BP 130/85; PULSE 83; RESP 18; TEMP 36.7
[2023-12-20] MEDS: IBUPROFEN 600 MG TABLET PO ×2 (02:40→08:11)
[2023-12-20] MEDS: ACETAMINOPHEN 325 MG TABLET 650 MG PO ×2 (02:40→08:10)
[2023-12-20 07:25] VITALS: BP 129/81; PULSE 86; RESP 16; TEMP 37.5; O2SAT 98
--- NOTE | 2023-12-20 07:57 | PM.OBPNVD ---
OB - PN: Subj Subjective Date/time seen: 12/20/23 07:25 Interval history: Doing very well. Still urinating without difficulty. Denies passing any large clots. Denies dizziness with ambulating. Tolerating po food and fluids. Bonding with . well. Pain well controlled with po medication Patient comments: no complaints and pain well controlled [place] baby status: doing well and nursing well [place] feeding status: exclusively breast feeding OB - PN: Obj Data Labs 12/17/23 04:08 OB - PN A/P Assessment and Plan (1) Delivery by section using transverse incision of lower segment of uterus: Code(s): O82 - Encounter for delivery without indication Status: Acute (2) Mother currently breastfeeds: Status: Acute Plan day: 4 Plan: discharge home Time Spent With Patient Time: Total time spent is greater than 50% in coordination of care (as documented) at patient's floor/unit and/or counseling patient: Review of Systems Review of Systems: All systems reviewed & are unremarkable except as noted in HPI and below Exam Const: General: cooperative, no acute distress and awake Orientation/consciousness: patient oriented x3 Limitations: no limitations Resp: Effort & Inspection: normal respiratory effort and able to speak in complete sentences Auscultation: clear to auscultation bilaterally Cardio: Rate: regular rate Peripheral pulses: Peripheral pulses 2+ throughout GI: Inspection: normal to inspection Auscultation: normal bowel sounds : General: Yes bladder normal to palpation Speculum Exam - Vagina: vaginal bleeding Bimanual exam- vagina & uterus: bladder normal to palpation OB/external & speculum: vaginal bleeding Other: Fundus firm and below U Skin: General skin exam: normal color Other: Incision C/D/I Neuro: General: patient oriented x3 Cognition (Neuro): normal cognition Speech: normal speech Extrem: General: normal to inspection Psych: Appearance: grossly normal Mental Status: mental status grossly normal Speech and movement: Normal speech and movement present Affect: normal affect Attitude: cooperative Thought process: Normal thought process present
[2023-12-20] MEDS: SIMETHICONE 80 MG TAB.CHEW PO (08:11)
[2023-12-20] MEDS: DOCUSATE SODIUM 100 MG CAPSULE PO (08:11)
[2023-12-20] MEDS: MULTIVIT/MIN/PREN/FOL AC/IRON TABLET 1 TAB PO (08:11)
[2023-12-20] MEDS: POLYSACCHARIDE IRON COMPLEX 150 MG CAPSULE PO (08:11)
--- NOTE | 2023-12-20 10:11 | PC.NURSE ---
[id number] Consulted with mother concerning needs and she shared her ability to independently latch infant optimally without pain. Mother is feeding appropriately for growth of infant and understands stimulating to eat if needed. Infant has had appropriate feedings in the last 24 hours meets the outcomes for weight, output, blood sugar and jaundice at this time. Reinforced understanding of milk production, transition of milk, signs of adequate intake, transition of stool, prevention/relief of engorgement, plugged ducts, mastitis, responsive watching for feeding cues, the different methods of stimulating to breastfeed 1-3 hours after the start of the last feeding, community resources, and when to call a provider using the resource of the feeding sheet along with the mom and baby guide. Mother voiced understanding of the information shared, is confident to continue effectively her infant at home, shared her milk feels like it is coming in , when to call for assistance (outpatient resources reviewed), denies any additional assistance or education at this time.
[2023-12-21 14:43] VITALS: BP 130/75; PULSE 68; RESP 18; TEMP 37; O2SAT 100
== END 2023-12-20 09:44 | disposition home or self-care (01) | DRG 788 ==
LOC: ANHLDR 12:41 → ANHOB2 14:52
PROVIDERS: Admitting Provider Obstetrics & Gynecology Gynecology; PCP Physician Assistant; Visit Provider Obstetrics & Gynecology Gynecology
PROC: (CPT 59514; principal; 2024-01-05 07:30)
DX: O82 Encounter for cesarean delivery without indication (principal); Z3A.36 36 weeks gestation of pregnancy; Z37.0 Single live birth
CPT/HCPCS: 36415; 85025; 86592; 86703; 86850; 86900; 86901; A9270; G0432; J0690; J1885; J2210; J2274; J2405; J2590